=== PATIENT | male | born 1985 ===

== ENCOUNTER 2017-08-18 09:38 | Emergency (ER) | payer OTHER ==
[~2017-08-18] VITALS: Ht 177.8 cm; Wt 78.0 kg
[2017-08-18] MEDS ORDERED: PROTONIX20 MG PO (14:05)
== END 2017-08-18 14:52 | disposition home or self-care (01) ==
LOC: ER 09:38
DX: K52.89 Other specified noninfective gastroenteritis and colitis (principal); E86.0 Dehydration